=== PATIENT | female | born 1935 | race Caucasian/White ===

== ENCOUNTER 2017-03-10 04:33 | Inpatient (IN) | payer MEDICARE, BC ==
[~2017-03-10] VITALS: Ht 157.5 cm; Wt 64.2 kg
[~2017-03-10 04:33] MED LIST: AUGMENTIN 875-11 TAB PO; AVELOX400 MG PO; CLARINEX-D 21 BOTTLE PO; MINOCYCLINE HC100 MG PO; NEXIUM40 MG PO; NORCO 5/325 TAB1 TAB PO; PRILOSEC20 MG PO; PROAMATINE2.5 MG PO; SYNTHROID112 MC1 PO; TRIAMTERENE-HCT1 TAB PO
[2017-03-10] MEDS ORDERED: NEUPRO1 EAC2 (05:18)
[2017-03-10] MEDS ORDERED: LEXAPRO10 M2 PO (05:18)
[2017-03-10] MEDS ORDERED: OXYBUTYNIN CHLOR5 M2 PO (05:19)
[2017-03-10] MEDS ORDERED: [UNRECOGNIZED DRUG - OTHER] (05:20)
[2017-03-10 06:55] LABS: BASO % 0.3 % (0-2); EOS % 1.5 % (0-7); EOSINOPHIL ABSOLUTE COUNT 0.1 tho/cmm (0.0-0.7); HGB-HEMOGLOBIN 14.1 gm/dl (12.0-15.5); LYMPH % 33.8 % (20-45); MCH (MEAN CORPUSCULAR HGB) 30.4 pg (28.0-32.0); MCHC MEAN CORPUSCULAR HGB CONC 32.8 % (32.0-36.0); MCV (MEAN CELL VOLUME) 92.7 fl (82.0-96.0); MEAN PLATELET VOLUME 11.2 cmc (9.4-12.4); MONO % 10.1 % (0-12); MONOCYTE ABSOLUTE COUNT 0.6 tho/cmm (0.0-1.2); NEUTROPHIL ABSOLUTE COUNT 3.2 tho/cmm (1.6-8.0); NEUTROPHIL-AUTOMATED 3.2 tho/cmm (1.6-8.0); NEUTROPHILS % 54.3 % (40-80); PLATELET COUNT 165 tho/cmm (150-450); RED BLOOD COUNT 4.64 mil/cmm (4.00-5.20); RED CELL DISTRIBUTION WIDTH 13.6 % (12.4-16.4); WHITE BLOOD COUNT 5.9 tho/cmm (4.0-10.0)
[2017-03-10 07:12] LABS: ANION GAP 8 mmol/L (0-20); BLOOD UREA NITROGEN 19 mg/dl (6-24); CALCIUM 8.9 mg/dl (8.5-10.5); CARBON DIOXIDE-VENOUS 31 mmol/L (22-32); CHLORIDE 107 mmol/l (96-110); CREATININE 0.81 mg/dl (0.50-1.10); GLUCOSE 97 mg/dL (70-110); SODIUM 142 mmol/L (135-145); eGFR VALUE FOR BLACK 80 mL/Min
[2017-03-10 07:14] LABS: POTASSIUM 3.7 mmol/L (3.7-5.1)
[2017-03-10] MEDS ORDERED: MIDODRINE HCL10 M1 PO (08:01)
[2017-03-10] MEDS ORDERED: NAMENDA10 M1 PO (08:01)
[2017-03-10] MEDS ORDERED: NEUPRO1 EACH TD (08:02)
[2017-03-10] MEDS ORDERED: RIVASTIGMINE1 EAC1 TD (08:03)
[2017-03-10] MEDS ORDERED: ASPIRIN81 M1 PO (08:10)
[2017-03-10] MEDS ORDERED: VITAMIN D32000 UNI2 PO (08:10)
[2017-03-10] MEDS ORDERED: ALEVE220 M3 PO (08:55)
[2017-03-10] MEDS ORDERED: VITAMIN B-121000 MC1 PO (08:55)
[2017-03-10] MEDS ORDERED: PRILOSEC OTC20 M1 PO (08:55)
[2017-03-10] MEDS ORDERED: SINEMET 25-1001 EAC1 PO (08:57)
[2017-03-10] MEDS ORDERED: [UNRECOGNIZED DRUG - REMARK] PO (14:01)
[2017-03-13] MEDS ORDERED: TYLENOL325 M2 PO (13:16)
== END 2017-03-13 16:25 | DRG 552 ==
LOC: EDMED 04:33 → 5EB 08:05 → EMR2 08:05 → 5EB 13:19
PROVIDERS: Emergency Medicine; ADMIT Family Medicine
DX: S12.101A Unspecified nondisplaced fracture of second cervical vertebra, initial encounter for closed fracture (principal); G20 Parkinson's disease; F03.90 Unspecified dementia, unspecified severity, without behavioral disturbance, psychotic disturbance, mood disturbance, and anxiety; E03.9 Hypothyroidism, unspecified; E55.9 Vitamin D deficiency, unspecified; F32.9 Major depressive disorder, single episode, unspecified; H35.30 Unspecified macular degeneration; I73.00 Raynaud's syndrome without gangrene; I87.2 Venous insufficiency (chronic) (peripheral); I95.1 Orthostatic hypotension; K21.9 Gastro-esophageal reflux disease without esophagitis; K57.90 Diverticulosis of intestine, part unspecified, without perforation or abscess without bleeding; M19.90 Unspecified osteoarthritis, unspecified site; N18.2 Chronic kidney disease, stage 2 (mild); Z91.81 History of falling
CPT/HCPCS: G8978-GP-CJ; G8979-GP-CJ; G8980-GP-CJ; J0360; J2405